=== PATIENT | female | born 1965 | race Caucasian/White ===

== ENCOUNTER 2019-01-14 10:17 | Emergency (ER) | payer BC, OTHER ==
[~2019-01-14] VITALS: Ht 167.6 cm; Wt 57.0 kg
[2019-01-14 14:02] VITALS: BP 136/82
== END 2019-01-14 14:03 | disposition home or self-care (01) ==
LOC: ED 12:23
DX: F41.1 Generalized anxiety disorder (principal); F32.9 Major depressive disorder, single episode, unspecified
CPT/HCPCS: 99284

== ENCOUNTER 2019-01-21 21:48 | Emergency (ER) | payer BC ==
[~2019-01-21] VITALS: Ht 167.6 cm; Wt 57.3 kg
[2019-01-21] MEDS ORDERED: ONDANSETRON 2MG/ML, 2ML IVPush ONE (23:00)
[2019-01-21] MEDS ORDERED: MORPHINE SULFATE 4 MG/ML, 1ML IVPush ONE (23:00)
[2019-01-21] MEDS ORDERED: ONDANSETRON 2MG/ML, 2ML ONE (23:14)
[2019-01-21] MEDS ORDERED: MORPHINE SULFATE 4 MG/ML, 1ML ONE (23:15)
--- NOTE | 2019-01-21 23:23 | NUR ---
PT HERE FOR ABD PAIN. PIV PLACED AND PT MEDICATE FOR PAIN. UA SENT TO LAB. VSS. PT TO HAVE CT. CALL LIGHT IN REACH
[2019-01-21 23:26] LABS: MICROSCOPIC NOT IND
[2019-01-21 23:30] LABS: CULTURE INDICATED? NO
[2019-01-21] MEDS ORDERED: OMNIPAQUE 350 MG/ML, 100ML BOTTLE ONE (23:59)
[2019-01-22 00:15] VITALS: BP 133/68
--- NOTE | 2019-01-22 00:37 | NUR ---
PT SAYS PAIN HAS SLIGHTLY IMPROVED WITH PAIN MEDICATION. VSS. WAITING ON CT RESULTS.
--- NOTE | 2019-01-22 00:51 | NUR ---
Patient given discharge instructions and they have confirmed that they understand the instructions. Patient ambulatory with steady gait.
== END 2019-01-22 00:54 | disposition home or self-care (01) ==
LOC: ED 23:02
DX: R10.12 Left upper quadrant pain (principal); F41.1 Generalized anxiety disorder; F32.9 Major depressive disorder, single episode, unspecified
CPT/HCPCS: 74177; 81003; 96374; 96375; 99284; J2270; J2405; Q9967

== ENCOUNTER 2019-01-22 13:01 | Emergency (ER) | payer BC ==
[~2019-01-22] VITALS: Ht 167.6 cm; Wt 58.0 kg
[2019-01-22 13:27] VITALS: BP 148/78
[2019-01-22] MEDS ORDERED: KETOROLAC 60 MG/2 ML IM ONE (14:00)
[2019-01-22] MEDS ORDERED: KETOROLAC 60 MG/2 ML ONE (14:18)
[2019-01-22] MEDS ORDERED: OXYcodone/APAP 5/325MG TABLET ONE (14:37)
[2019-01-22] MEDS ORDERED: OXYcodone/APAP 5/325MG TABLET PO ONE (15:00)
== END 2019-01-22 15:12 | disposition home or self-care (01) ==
LOC: ED 15:11
DX: R10.12 Left upper quadrant pain (principal); F32.9 Major depressive disorder, single episode, unspecified; F41.1 Generalized anxiety disorder
CPT/HCPCS: 96372; 99283; J1885